=== PATIENT | female | born 1950 | race Hispanic/Latino ===

== ENCOUNTER 2017-04-04 20:26 | Emergency (ER) | payer SELFPAY ==
--- NOTE | 2017-04-04 23:05 | C.PDOC ---
History Of Present Illness Pt is here for suture removal, but BP was found to be very elevated. Time Seen by Provider: 04/04/17 21:09 Chief Complaint (Nursing): High Blood Pressure History Per: Patient Onset/Duration Of Symptoms: Unknown Current Symptoms Are (Timing): Still Present Quality Of Symptoms: Asymptomatic Severity: Severe Exacerbating Factor(s): Pos: None Additional History Per: Prior Records Past Medical History Reviewed: Historical Data, Nursing Documentation, Vital Signs Vital Signs: Last Vital Signs Temp 97.9 F 04/04/17 20:51 Pulse 95 H 04/04/17 22:15 Resp 22 04/04/17 22:15 BP 168/88 H 04/04/17 22:15 Pulse Ox 95 04/04/17 22:15 - Medical History PMH: HTN (NO MEDS PER PT) Family History: States: Unknown Family Hx - Social History Hx Alcohol Use: No Hx Substance Use: No - Immunization History Hx Tetanus Toxoid Vaccination: No Hx Influenza Vaccination: No Hx Pneumococcal Vaccination: No Review Of Systems Except As Marked, All Systems Reviewed And Found Negative. Constitutional: Negative for: Fever, Weakness Cardiovascular: Negative for: Chest Pain Respiratory: Negative for: Shortness of Breath Gastrointestinal: Negative for: Vomiting, Abdominal Pain Genitourinary: Negative for: Dysuria Musculoskeletal: Negative for: Neck Pain Neurological: Negative for: Weakness, Numbness, Confusion, Seizures, Altered Mental Status, Headache Physical Exam - Physical Exam Appears: Non-toxic, No Acute Distress, Unkempt Skin: Warm, Dry Head: Normacephalic, Laceration (on righy eyebrow, closed with sutures.) Eye(s): bilateral: PERRL, EOMI Neck: Normal ROM, Supple Cardiovascular: Rhythm Regular Respiratory: Normal Breath Sounds, No Accessory Muscle Use Gastrointestinal/Abdominal: Soft, No Tenderness Extremity: Normal ROM, Pedal Edema Neurological/Psych: Oriented x3, Normal Motor, Normal Sensation ED Course And Treatment O2 Sat by Pulse Oximetry: 95 Pulse Ox Interpretation: Normal Progress Note: Sutures were removed without difficulty. Reassessment Condition: Improved Progress - Interventions Interventions:: Observation - Medications Administered Oral: Antihypertensive - Data Reviewed Data Reviewed: Old records - Patient Status Patient status: Mostly improved - Continuity of Care Discussed patient case with:: Patient, ED Nurse - Patient Plan Patient Plan: Discharge, F/U with PCP Disposition Counseled Patient/Family Regarding: Studies Performed, Diagnosis, Need For Followup, Rx Given - Disposition Referrals: [facility] [Outside] Disposition: HOME/ ROUTINE Disposition Time: 23:07 Condition: IMPROVED Additional Instructions: Follow up in the clinic for further evaluation and treatment. Return to the ER if you develop weakness, numbness, shortness of breath, chest pain, headache, worsening of symptoms or if you have any other concerns. Prescriptions: hydroCHLOROthiazide [Microzide] 12.5 mg PO DAILY #30 cap Instructions: Hypertension (ED), Stitches Removal (ED) Print Language: [place]ER - Clinical Impression Clinical Impression: Asymptomatic hypertensive urgency, Encounter for removal of sutures
[2017-04-04] MEDS ORDERED: Bacitracin 500 Units/gm Oint Foilpak UD TOP ONE (23:10)
[2017-04-04] MEDS ORDERED: Bacitracin 500 Units/gm Oint Foilpak UD ONE (23:19)
[2017-04-04 23:26] VITALS: BP 164/90; PULSE 88; RESP 20; TEMP 98.4; O2SAT 96
== END 2017-04-04 23:33 | disposition home or self-care (01) ==
LOC: C.ER 20:26
DX: I16.0 Hypertensive urgency (principal); I10 Essential (primary) hypertension; Z48.02 Encounter for removal of sutures